=== PATIENT | female | born 1960 | race Caucasian/White ===

== ENCOUNTER 2021-07-13 09:58 | Emergency (ER) | payer MEDICARE, MEDICAID ==
[2021-07-13] MEDS ORDERED: Lidocaine 1% with EPINEPHrine 1:100,000 20 ML MDV ONE (10:30)
== END 2021-07-13 10:46 | disposition home or self-care (01) ==
LOC: LB.ED 09:58
DX: S81.811A Laceration without foreign body, right lower leg, initial encounter (principal); E11.9 Type 2 diabetes mellitus without complications; Z72.0 Tobacco use; Z86.73 Personal history of transient ischemic attack (TIA), and cerebral infarction without residual deficits; W22.09XA Striking against other stationary object, initial encounter
CPT/HCPCS: 12001; 99282-25